=== PATIENT | female | born 1950 | race Caucasian/White ===

== ENCOUNTER → 2019-08-07 | Outpatient (CLI) | payer MEDICARE, OTHER | LOC: M.ULTRA 12:51 | DX: L03.119 Cellulitis of unspecified part of limb (principal); D69.6 Thrombocytopenia, unspecified; R22.43 Localized swelling, mass and lump, lower limb, bilateral; R53.83 Other fatigue ==

== ENCOUNTER → 2019-12-12 | Outpatient (CLI) | payer MEDICARE, OTHER | LOC: M.RAD 11:38 | DX: J40 Bronchitis, not specified as acute or chronic (principal); Z99.81 Dependence on supplemental oxygen ==

== ENCOUNTER 2020-04-07 13:13 | Inpatient (IN) | payer MEDICARE, OTHER ==
[~2020-04-07] VITALS: Ht 157.5 cm; Wt 75.1 kg
[2020-04-07 13:15] VITALS: BP 135/57
[2020-04-07 13:49] LABS: ABSOLUTE EOSINOPHILS 0.1 thou/uL (0.0-0.7); ABSOLUTE LYMPHOCYTES 0.7 thou/uL (0.8-5.3); ABSOLUTE MONOCYTES 0.4 thou/uL (0.0-1.2); ABSOLUTE NEUTROPHILS 3.3 thou/uL (1.6-8.1); BASOPHILS 0.7 %; EOSINOPHILS 1.6 %; HEMATOCRIT 41.6 % (37.0-47.0); HEMOGLOBIN 14.6 gm/dL (12.0-15.0); LYMPHOCYTES 14.7 %; MCH 35.2 pg (26.0-34.0); MCHC 35.1 g/dL (28.0-37.0); MCV 100.5 fL (80.0-100.0); MONOCYTES 9.5 %; MPV 8.5 fl. (7.2-11.1); NUCLEATED RBCS 0 /100WBC; PLATELET COUNT* 76 thou/uL (150-400); POLYS 73.5 %; RBC 4.14 mil/uL (4.20-5.00); RDW-CV 14.4 % (10.5-14.5); WBC 4.5 thou/uL (4.0-11.0)
[2020-04-07 14:00] LABS: APTT 28.3 Seconds (25.0-31.3); CALCIUM 8.7 mg/dL (8.5-10.1); CREATININE 1.3 mg/dL (0.6-1.3); INR 1.3; POTASSIUM 4.4 mmol/L (3.5-5.1)
[2020-04-07 14:04] LABS: ALBUMIN 2.9 g/dL (3.4-5.0); TOTAL BILIRUBIN 4.2 mg/dL (<0.1-1.0); TOTAL PROTEIN 6.2 g/dL (6.4-8.2)
[2020-04-07 14:39] LABS: URINE BILIRUBIN NEGATIVE (Negative); URINE BLOOD TRACE (Negative); URINE CLARITY CLEAR; URINE COLOR YELLOW; URINE GLUCOSE-RANDOM 2+ (Negative); URINE KETONES NEGATIVE (Negative); URINE LEUKOCYTES-REFLEX NEGATIVE (Negative); URINE NITRITE-REFLEX NEGATIVE (Negative); URINE PROTEIN NEGATIVE (Negative); URINE UROBILINOGEN >= 8.0 E.U./dl (0.2-1.0)
[2020-04-07] MEDS ORDERED: XIFAXAN550 MG PO (15:02)
[2020-04-07] MEDS ORDERED: ASA81BEC PO (15:02)
[2020-04-07] MEDS ORDERED: METFORMIN HCL500 M3 PO (15:03)
[2020-04-07] MEDS ORDERED: CITRACAL + D E1 EACH PO (15:04)
[2020-04-07] MEDS ORDERED: IRON325 M1 PO (15:04)
[2020-04-07] MEDS ORDERED: MULTIVITAMINS1 EAC7 PO (15:05)
[2020-04-07] MEDS ORDERED: LEXAPRO20 MG PO (15:05)
[2020-04-07] MEDS ORDERED: ALDACTONE50 MG PO (15:06)
[2020-04-07] MEDS ORDERED: BUPROPION XL300 MG PO (15:06)
[2020-04-07] MEDS ORDERED: FUROSEMIDE 40 M40 MG PO (15:06)
[2020-04-07] MEDS ORDERED: COQ1050 MG PO (15:07)
[2020-04-07] MEDS ORDERED: JANUVIA100 MG PO (15:07)
[2020-04-07] MEDS ORDERED: OMEPRAZOLE 20 M20 M1 PO (15:08)
[2020-04-07] MEDS ORDERED: AVAPRO75 MG PO (15:08)
[2020-04-07] MEDS ORDERED: ROPINIROLE HCL4 M1 PO (15:08)
[2020-04-07 15:30] VITALS: BP 135/61
[2020-04-07 16:00] VITALS: BP 127/54
--- NOTE | 2020-04-07 16:34 | NUR ---
PT ADMITTED TO ROOM 232 FROM ED VIA BED WITH DX OF FRACTURED RIGHT HIP POST FALL. PT HAS STAGE 4 LIVER CIRRHOSIS AND RECIEVES CARE AT [facility] [address]. REQUEST FOR RECORDS. PT IS LETHARGIC, ABLE TO ANSWER ORIENTATION QUESTIONS BUT OTHERWISE IS DROWSY UNDER SEDATION. PT ON 2L NC THAT SHE WEARS AT HOME. VSS. SR ON THE MONITOR.L AC INFUSING NS AT 100. HIP ABDUCTOR REQUESTED FROM CAPACITY MANAGEMENT SPECIALIST TO ASSIST IN IMMOBILIZING PT LEGS. VENCES DRAINING CLEAR.PT IS UNABLE TO PROVIDE THOROUGH INFORMATION. WILL ATTEMPT TO CALL . ALARM IN PLACE. WCTM
[2020-04-07 20:15] VITALS: BP 133/57
[2020-04-08] VITALS (7 sets, daily range): BP systolic 108–126; BP diastolic 44–58
[2020-04-08 06:18] LABS: HEMATOCRIT 40.5 % (37.0-47.0); MCH 35.3 pg (26.0-34.0); MCHC 34.7 g/dL (28.0-37.0); MCV 101.7 fL (80.0-100.0); MPV 8.7 fl. (7.2-11.1); RBC 3.98 mil/uL (4.20-5.00); RDW-CV 14.3 % (10.5-14.5)
[2020-04-08 06:34] LABS: ALBUMIN 2.6 g/dL (3.4-5.0); CALCIUM 8.1 mg/dL (8.5-10.1); CREATININE 1.1 mg/dL (0.6-1.3); MAGNESIUM 1.7 mg/dL (1.8-2.4); POTASSIUM 4.3 mmol/L (3.5-5.1); TOTAL BILIRUBIN 4.8 mg/dL (<0.1-1.0); TOTAL PROTEIN 5.8 g/dL (6.4-8.2)
--- NOTE | 2020-04-08 06:51 | NUR ---
RECEIVED REPORT AND ASSUMED CARE OF PATIENT AT 1900. VSS. NO ACUTE CHANGES THROUGHOUT SHIFT. ALL ROUNDINGS COMPLETED, ALL NEEDS MET, FULL ASSESSMENT COMPLETED CHARTED. CALL LIGHT AND PERSONAL ITEMS IN REACH.
--- NOTE | 2020-04-08 10:12 | EKG ---
[place] [address] ELECTROCARDIOGRAM REPORT Name: TIFFANIE MARIN Room: [address] ADM IN M.R.#: [id number] Admission: 04/07/20 Attend Phys: Doe khalil Sa Discharge: Date of : 46 Date of Service: 04/07/20 1330 Report #: [id number] THIS REPORT FOR: //name// [facility] ED Test Date: 2020-04-07 Test Time: 13:30:47 Pat Name: TIFFANIE MARIN Department: Room: [facility] Gender: F Core Cutter: BONNY : 1950 Requested By: Juan Jose Mitchell Order Number: [id number] MD: Stefan Byrd Measurements Intervals [place] Rate: 69 P: 77 IA: 175 QRS: -53 QRSD: 124 T: 97 QT: 452 QTc: 485 Interpretive Statements Sinus rhythm nonspecific intraventricular conduction defect left axis nonspecific st changes No previous ECG available for comparison Electronically Signed On 04-08-2020 10:10:21 CDT by Stefan Byrd [email or web address] <ELECTRONICALLY SIGNED> By: Stefan Byrd MD, FAC 04/08/20 1010 1330 1330 Stefan Byrd MD, [facility] /EPI
--- NOTE | 2020-04-08 12:25 | CON ---
[address] [address] CONSULTATION Name: NISHA MARINTiffany Younger Room: [address] IN M.R.#: [id number] Admission: 04/07/20 Attend Phys: Doe Cline Discharge: Date of : 46 Report #: [id number] THIS REPORT FOR: //name// cc: Kusum Costello MD, Lin W. MD ~ THIS REPORT FOR: //name// CC: Doe Perrin MD DATE OF SERVICE: 04/08/2020 CARDIOLOGY CONSULTATION HISTORY OF PRESENT ILLNESS: The patient is a 70-year-old white female who I was asked to see in the hospital today after she fell and broke her hip. The history is obtained from the patient who is currently drowsy and it was difficult for her to stay awake. According to notes in the chart, she had 3 coronary artery stents placed in 2003 at [place]. She is not very active at this time. She denies any significant chest pain or shortness of breath. Apparently yesterday, she was up in her kitchen and she tripped and fell. Her brought her to the Emergency Room. There was no seizure activity. She had x-rays obtained and found to have a hip fracture. She is scheduled for surgery today. Cardiology consultation was requested for preop evaluation. She denies any recent palpitations or loss of consciousness. PAST MEDICAL HISTORY: Otherwise significant for recent hospitalization at [facility] on the [address] for paracentesis. She apparently has a history of cirrhosis. She does have a history of diabetes. CURRENT MEDICATIONS: Consist of aspirin, metformin, bupropion, Lasix, spironolactone, Januvia, omeprazole, Avapro, ropinirole. ALLERGIES: SHE HAS A PREVIOUS INTOLERANCE TO TRAZODONE. FAMILY HISTORY: Negative for heart disease. SOCIAL HISTORY: She is . She and her live in [place]. She denies a history of smoking or alcohol abuse. REVIEW OF SYSTEMS: She denies a history of stroke. She apparently does have oxygen at home. No history of kidney disease, cancer, psychiatric illness, chronic skin condition. PHYSICAL EXAMINATION: [place] [address] CONSULTATION Name: TIFFANIE MARIN Room: [address]#: [id number] Admission: 04/07/20 Attend Phys: Doe Cline Discharge: Date of : 46 Report #: [id number] GENERAL: Revealed an elderly female lying in bed. She appeared in no acute distress. VITAL SIGNS: She had a blood pressure of 120/60, pulse is 80, she is afebrile. HEENT: She was anicteric. Conjunctivae are pink. Mucous membranes appear dry. NECK: Veins nondistended. No carotid bruits. CHEST: Clear to auscultation. CARDIOVASCULAR: Regular rate and rhythm, no murmur. ABDOMEN: Soft. EXTREMITIES: Had no edema. Dorsalis pedis pulse cannot be palpated. SKIN: Cool and dry. NEUROLOGIC: Nonfocal. LABORATORY DATA: ECG on admission yesterday showed a sinus rhythm with left anterior fascicular block. Her workup in the Emergency Room yesterday, she had a portable chest x-ray that showed normal heart size, clear lung marino. No significant infiltrate or effusions. She had a CT scan of the head performed after her a fall that showed no acute abnormality. She had a lab work in the Emergency Room yesterday that showed sodium 138, potassium 4.3, creatinine 1.1; SGOT 54, SGPT 30, bilirubin 4.8, alkaline phosphatase 96, albumin is only 2.6. Troponin is 0.06. Her white blood cell count 8.0, hemoglobin 14.0, platelet count is only 85,000. IMPRESSION AND RECOMMENDATIONS: 1. Hip fracture. The patient appears to have no cardiac contraindication to surgery. Recommend no further cardiac evaluation at this time. I would hold aspirin prior to surgery. 2. History of coronary artery stents. No recent angina. I would resume aspirin after surgery. 3. Hypertension. The patient is on ARB. 4. Diabetes. 5. History of cirrhosis. 6. Thrombocytopenia. No recent bleeding. 7. Cirrhosis. I would attempt to obtain the records. <ELECTRONICALLY SIGNED> By: Stefan Byrd MD, [facility] 04/08/20 1225 0821 [id number] Byrd MD, FAC /nt
--- NOTE | 2020-04-08 12:27 | NUR ---
CM ATTEMPTED TO SEE PT. NURSING SAID SHE WENT TO SURGERY. WILL SEE TOMORROW.
--- NOTE | 2020-04-08 15:15 | NUR ---
PT RETURNED TO ROOM 232 FROM PACU. WHILE IN PACU PT'S , DEANA, WAS ALLOWED IN TO SEE PT. HE TOOK PT'S [place]ING RING AND WATCH HOME WITH HIM.
[2020-04-08 18:29] LABS: HEMATOCRIT 34.9 % (37.0-47.0); HEMOGLOBIN 12.1 gm/dL (12.0-15.0)
[2020-04-09] VITALS (7 sets, daily range): BP systolic 91–120; BP diastolic 35–54
--- NOTE | 2020-04-09 04:14 | NUR ---
ASSUMED OT CARE AT APPROX 1930. PT IS DROWSY BUT AROUSABLE, AND IS ORIENTED X4. RESIDENTIAL INSURANCE INSPECTOR IS TRACING SR BBB. NO DESATURATIONS NOTED ON 4L OF O2/NC. PT C/O RIGHT HI[ PAIN PARTIALLY RELIEVED BY PAIN MEDS GIVEN PER JAN. NO ACUTE CHANGES THIS SHIFT. POSITION CHANGES DONE Q2H. RIGHT HIP DRESSING INTACT, CLEAN AND DRY. ABDUCTOR PILLOW IN PLACE. CALL LIGHT WITHIN REACH. HOURLY ROUNDING DONE FOR PT SAFETY. HIGH FALL PRECAUTIONS IN PLACE.
[2020-04-09 04:20] LABS: ABSOLUTE LYMPHOCYTES 0.5 thou/uL (0.8-5.3); ABSOLUTE NEUTROPHILS 8.5 thou/uL (1.6-8.1); BASOPHILS 0.1 %; HEMATOCRIT 31.7 % (37.0-47.0); HEMOGLOBIN 11.1 gm/dL (12.0-15.0); LYMPHOCYTES 5.1 %; MCH 35.6 pg (26.0-34.0); MCHC 34.9 g/dL (28.0-37.0); MPV 8.4 fl. (7.2-11.1); NUCLEATED RBCS 0 /100WBC; PLATELET COUNT* 62 thou/uL (150-400); POLYS 84.8 %; RBC 3.11 mil/uL (4.20-5.00); RDW-CV 14.7 % (10.5-14.5)
[2020-04-09 04:45] LABS: ALBUMIN 2.4 g/dL (3.4-5.0); CALCIUM 7.6 mg/dL (8.5-10.1); CREATININE 1.3 mg/dL (0.6-1.3); MAGNESIUM 1.8 mg/dL (1.8-2.4); POTASSIUM 4.6 mmol/L (3.5-5.1); TOTAL BILIRUBIN 2.9 mg/dL (<0.1-1.0)
[2020-04-10] VITALS: BP 94/45
[2020-04-10 04:00] VITALS: BP 100/42
--- NOTE | 2020-04-10 05:33 | NUR ---
ASSUMED OT CARE AT APPROX 1930. PT IS DROWSY BUT AROUSABLE, AND IS ORIENTED X4. LITERACY TUTOR IS TRACING SR. NO DESATURATIONS NOTED ON 4L OF O2/NC. RIGHT HIP PAIN RELIEVED BY PAIN MEDICINE GIVEN PER JAN. NO ACUTE CHANGES OVERNIGHT. POST OP DRESSING ON THE RIGHT HIP IS C/D/I. POSITION CHANGES DONE Q2H. CALL LIGHT WITHIN REACH. HOURLY ROUNDING DONE FOR PT SAFETY.HIGH FALL PRECAUTIONS IN PLACE.
[2020-04-10 07:30] VITALS: BP 106/49
--- NOTE | 2020-04-10 11:31 | NUR ---
SPOKE WITH PT'S ,DEANA,THIS AM. HE RETURNED MY CALL FROM YESTERDAY. HE SAID PT.LIVES AT HOME WITH HIM. HE IS HOME MOST OF THE TIME WITH HER. PTS MOM HELPS SOMETIMES. SHE USES A CANE. DOES NOT HAVE A WALKER. HAS O2 THROUGH [facility] BUT DOESN'T LIKE TO WEAR IT. DID NOT HAVE IT ON WHEN SHE FELL. SHE GETS FUZZY SOMETIMES WHEN SHE DOESN'T WEAR HER O2. SHE IS INDEPENDENT WITH DRESSING AND BATHING AND SOME FORKLIFT OPERATOR. SHE LIKES TO SPEND TIME IN THEIR FINISHED BASEMENT BUT SHE USUALLY NEEDS ASSIST WITH GOING DOWN THE STAIRS. HE WOULD LIKE FOR HER TO GO TO INPT.REHAB IF SHE QUALIFYS. WILL DISCUSS WITH . DEANA WOULD LIKE TO VISIT PT. CM CHECKED WITH CNO. SHE SAID WE ARE NOT ACCEPTING VISITORS AT THIS TIME UNLESS SOMEONE IS IMMENENTLY DYING OR OTHER EXTENUATING CIRCUMSTANCES. ROBBY INFORMED HE IS NOT ALLOWED TO VISIT.
[2020-04-10 12:00] VITALS: BP 91/32
[2020-04-10 15:49] LABS: ABSOLUTE EOSINOPHILS 0.1 thou/uL (0.0-0.7); ABSOLUTE LYMPHOCYTES 0.7 thou/uL (0.8-5.3); ABSOLUTE MONOCYTES 0.7 thou/uL (0.0-1.2); ABSOLUTE NEUTROPHILS 5.2 thou/uL (1.6-8.1); BASOPHILS 0.5 %; EOSINOPHILS 1.3 %; HEMATOCRIT 28.4 % (37.0-47.0); HEMOGLOBIN 9.6 gm/dL (12.0-15.0); LYMPHOCYTES 10.5 %; MCH 35.3 pg (26.0-34.0); MCV 103.8 fL (80.0-100.0); MPV 9.3 fl. (7.2-11.1); NUCLEATED RBCS 0 /100WBC; PLATELET COUNT* 50 thou/uL (150-400); POLYS 77.7 %; RBC 2.73 mil/uL (4.20-5.00); RDW-CV 15.1 % (10.5-14.5); WBC 6.7 thou/uL (4.0-11.0)
[2020-04-10 16:01] LABS: ALBUMIN 2.1 g/dL (3.4-5.0); CALCIUM 7.2 mg/dL (8.5-10.1); CREATININE 1.1 mg/dL (0.6-1.3); POTASSIUM 4.5 mmol/L (3.5-5.1); TOTAL BILIRUBIN 1.9 mg/dL (<0.1-1.0); TOTAL PROTEIN 4.1 g/dL (6.4-8.2)
[2020-04-10 16:02] LABS: % SATURATION 18 % (20-39); IRON 34 ug/dL (50-175)
[2020-04-10 17:57] VITALS: BP 83/34
[2020-04-10 20:00] VITALS: BP 118/44
[2020-04-11 00:02] VITALS: BP 109/45
[2020-04-11 04:00] VITALS: BP 101/49
--- NOTE | 2020-04-11 04:42 | NUR ---
PT WAS FOUND TO BE ONLY RESPONSIVE TO PAINFUL STIMULI, NO EYE OPENING, MOANS TO PAINFUL STIMULI, AND WITHDRAWS TO PAINFUL STIMULI AT APPROX 2030, PT WAS ABLE TO FINALLY WAKE UP AFTER MULTIPLE VIGOROUS STIMULI AT APPROX 2100 BUT GOES RIGHT BACK TO SLEEP AFTER. BLOOD GLUCOSE IS 121. DR HAMM INFORMED, NARCAN GIVEN PER JAN ORDERED. LACTULOSE ENEMA GIVEN PER JAN. PT WOKE UP AND C/O GENERALIZED PAIN AFTER THE NARCAN. TORADOL GIVEN. PT WENT BACK TO SLEEP AT APPROX 0330, PT WAKES UP WHEN NAME IS CALLED BUT WILL GO RIGHT BACK TO SLEEP. PT IS CLOSELY MONITORED.
[2020-04-11 08:00] VITALS: BP 128/59
[2020-04-11 11:30] VITALS: BP 97/48
[2020-04-11 13:54] LABS: BE -1.7 mmol/L (-2 to +3); PCO2 VENOUS 34.5 mmHg (41.0-51.0); PO2 VENOUS 121.3 mmHg (35.0-45.0)
[2020-04-11 13:55] LABS: ABSOLUTE EOSINOPHILS 0.2 thou/uL (0.0-0.7); ABSOLUTE LYMPHOCYTES 0.7 thou/uL (0.8-5.3); ABSOLUTE MONOCYTES 0.6 thou/uL (0.0-1.2); ABSOLUTE NEUTROPHILS 3.3 thou/uL (1.6-8.1); BASOPHILS 0.5 %; EOSINOPHILS 3.9 %; HEMATOCRIT 27.6 % (37.0-47.0); HEMOGLOBIN 9.6 gm/dL (12.0-15.0); LYMPHOCYTES 14.1 %; MCH 35.2 pg (26.0-34.0); MCHC 34.7 g/dL (28.0-37.0); MCV 101.4 fL (80.0-100.0); MONOCYTES 12.4 %; MPV 8.3 fl. (7.2-11.1); NUCLEATED RBCS 0 /100WBC; PLATELET COUNT* 54 thou/uL (150-400); POLYS 69.1 %; RBC 2.72 mil/uL (4.20-5.00); RDW-CV 14.4 % (10.5-14.5); WBC 4.7 thou/uL (4.0-11.0)
[2020-04-11 14:07] LABS: ALBUMIN 1.8 g/dL (3.4-5.0); CALCIUM 7.1 mg/dL (8.5-10.1); POTASSIUM 4.4 mmol/L (3.5-5.1); TOTAL BILIRUBIN 2.5 mg/dL (<0.1-1.0); TOTAL PROTEIN 4.3 g/dL (6.4-8.2)
[2020-04-11 16:00] VITALS: BP 140/67
--- NOTE | 2020-04-11 17:24 | NUR ---
ASSUMED CARE OF PATIENT THIS AM AT 0730. PATIENT IS IN BED WITH HER EYES CLOSED. SHE IS ANSWERING MOST QUESTIONS APPROPRIATELY WHEN ASKED. PATIENT HAS BEEN CRYING OUT AND TEARFUL OFTEN THROUGHOUT THE DAY. SHE INITIALLY C/O HIP PAIN BUT LATER STATED THAT SHE JUST WANTED TO GO HOME. PATIENT ANXIOUS AND CRYING UNCONTROLLABLY. TALKED WITH PATIENTS SEVERAL TIMES TODAY. PATIENT REPOSITIONED Q 2 HR. MEDICATED FOR PAIN INFREQUENTLY. IV FLUID BOLUS GIVEN BUT PATIENT'S U.O CONTINUE DIMINISHED. PO FLUIDS GIVEN FREQUENTLY. PATIENT IS IN BED. CALL LIGHT IS IN REACH. NO FALLS OR INJURY.
[2020-04-11 20:20] VITALS: BP 122/59
[2020-04-12] VITALS: BP 103/70
[2020-04-12 04:00] VITALS: BP 108/42
[2020-04-12 08:00] VITALS: BP 115/40
[2020-04-12 09:48] LABS: HEMATOCRIT 26.4 % (37.0-47.0); MCH 35.1 pg (26.0-34.0); MCHC 34.1 g/dL (28.0-37.0); MPV 8.5 fl. (7.2-11.1); RBC 2.57 mil/uL (4.20-5.00); RDW-CV 14.6 % (10.5-14.5); WBC 4.5 thou/uL (4.0-11.0)
[2020-04-12 10:13] LABS: AMMONIA < 10 umol/L (11-32); ANION GAP 6 mmol/L (7-16); BUN 50 mg/dL (7-18); CALCIUM 7.5 mg/dL (8.5-10.1); CHLORIDE 109 mmol/L (98-107); CO2 25 mmol/L (21-32); CREATININE 0.9 mg/dL (0.6-1.3); GLUCOSE 139 mg/dL (70-99); POTASSIUM 4.5 mmol/L (3.5-5.1); SODIUM 140 mmol/L (136-145)
[2020-04-12 12:00] VITALS: BP 140/63
--- NOTE | 2020-04-12 16:48 | NUR ---
PATIENT RESTING IN BED. SHE ATTEMPTED TO PARTICPIATE WITH THERAPIES TODAY, WITH MINIMAL SUCCESS. VSS AND PATIENT PAIN IS CONTROLLED WITH IV MEDICATION AND TOPICAL LIDOCAINE PATCH. HOURLY ROUDNING COMPLETED FOR PATIENT SAFETY.
[2020-04-12 17:00] VITALS: BP 131/54
[2020-04-12 20:10] VITALS: BP 137/56
[2020-04-13 00:15] VITALS: BP 126/47
[2020-04-13 04:15] VITALS: BP 145/55
--- NOTE | 2020-04-13 05:02 | NUR ---
PT CARE ASSUMED AT 1930. SAT MAINTAINED IN O2. PT IS TEARFUL, SAYS "I JUST WANT TO GO HOME" ALL THE TIME. ABDUCTOR PILLOW IN PLACE. TALKED WITH AND SISTER SEVERAL TIMES. VENCES IN PLACE AND DRAINING. CALL LIGHT WITHIN REACH AND BED IN LOW POSITION. HOURLY ROUNDING DONE FOR PT SAFETY.
[2020-04-13 07:02] LABS: HEMATOCRIT 28.4 % (37.0-47.0); MCH 35.4 pg (26.0-34.0); MCV 101.1 fL (80.0-100.0); MPV 8.2 fl. (7.2-11.1); RBC 2.81 mil/uL (4.20-5.00); RDW-CV 14.5 % (10.5-14.5); WBC 4.6 thou/uL (4.0-11.0)
[2020-04-13 07:13] LABS: ALBUMIN 2.1 g/dL (3.4-5.0); CALCIUM 7.3 mg/dL (8.5-10.1); POTASSIUM 4.4 mmol/L (3.5-5.1); TOTAL BILIRUBIN 3.8 mg/dL (<0.1-1.0); TOTAL PROTEIN 4.4 g/dL (6.4-8.2)
[2020-04-13 08:08] VITALS: BP 132/90
[2020-04-13 12:00] VITALS: BP 155/56
--- NOTE | 2020-04-13 16:19 | NUR ---
WOUND NURSE: PATIEN SEEN TO ADDRESS LINEAR BULLA ON RIGHT MEDIAL THIGH MEASURING 1.0 X 11.0 X 0.1 CM, SMALL AMOUNT OF SEROUS DRAINAGE, NO PERIWOUND REDNESS, WARMTH, OR INDURATION. SUSPECT MAY BE RELATED OR THE RESULT OF VENCES CATHETER. CLEANSED WITH SOAP AND WATER, RINSED WITH WATER, THEN PATTED DRY. APPLIED EXUDERM LP, THEN SECURED WITH TRANSPARENT DRESSING. PATIENT INSTRUCTED ON IMPORTANCE OF REPOSITIONING TO PREVENT SKIN BREAKDOWN. FOLLOW UP TEACHING WILL BE NECESSARY.
--- NOTE | 2020-04-13 16:56 | NUR ---
PTS CALL EARLIER. UPSET BECAUSE WOULD NOT WORK WITH THERAPIES OVER THE WEEKEND. HE THINKS SHE HAS GIVEN UP. CM SAW PT. SHE STATED HOW MAD SHE WAS AT HER FOR PUTTING IN THE HARDWOOD FLOORS THAT MADE HER FALL. LISTENED TO HER VENT. SHE SAID SHE WANTED TO GO HOME. EXPLAINED THAT COULD NOT TAKE CARE OF HER AT [facility] BY HIMSELF AND THE DRS WOULD NOT LET HER GO HOME AT [facility]. SHE WOULD EITHER HAVE TO GO TO THE ACUTE INPT.REHAB UNIT HER IN THE HOSPTIAL [place] [facility] [place] [place]. SHE SAID SHE DID NOT WANT TO GO TO A LONGTERM SO SHE WOULD TRY HARD WITH THERAPY TO GET TO GO UP THERE. CALLED PTS BACK AND HAD TO LEAVE A . HE REQUESTED I CALL HIM AFTER SPEAKING WITH HIS .
--- NOTE | 2020-04-13 18:10 | NUR ---
PATIENT RESTING IN BED. UP WITH ASSIST X1 AND WALKER WITH MODERATE ASSISTANCE. SHE PARTICIPATED WITH PT/OT TODAY. PAIN MANAGED WITH PO MEDICATIONS. VSS AND PATIENT IN NOAPPARNET SIGNS OF DISTRESS. VENCES TO GRAVITY DRAIN BAG. RIGHT HIP ISLAND DRESSING INTACT. DISTAL PULSES INTACT. HOURLY ROUNDING COMPLETD FOR PATIENT SAFETY.
[2020-04-13 20:20] VITALS: BP 135/47
[2020-04-14] VITALS (7 sets, daily range): BP systolic 114–160; BP diastolic 39–63
--- NOTE | 2020-04-14 05:18 | NUR ---
PT CARE ASSUMED AT 1930. SAT MAINTAINED IN O2. ALERT AND ORIENTED X3 BUT CONFUSED. C/O PAIN, MEDICATION GIVEN PER EMAR. VENCES IN PLACE AND DRAINING. CALL LIGHT WITHIN REACH AND BED IN LOW POSITION. HOURLY ROUNDING DONE FOR PT SAFETY.
[2020-04-14 08:37] LABS: HEMATOCRIT 28.8 % (37.0-47.0); HEMOGLOBIN 10.2 gm/dL (12.0-15.0); MCH 35.1 pg (26.0-34.0); MCHC 35.4 g/dL (28.0-37.0); MCV 99.2 fL (80.0-100.0); MPV 7.4 fl. (7.2-11.1); RBC 2.9 mil/uL (4.20-5.00); RDW-CV 14.6 % (10.5-14.5); WBC 5.3 thou/uL (4.0-11.0)
[2020-04-14 08:51] LABS: ALBUMIN 2.3 g/dL (3.4-5.0); ALKALINE PHOSPHATASE 88 U/L (46-116); AMMONIA < 10 umol/L (11-32); ANION GAP 9 mmol/L (7-16); BUN 49 mg/dL (7-18); CALCIUM 7.5 mg/dL (8.5-10.1); CHLORIDE 110 mmol/L (98-107); CO2 21 mmol/L (21-32); CREATININE 1.2 mg/dL (0.6-1.3); GLUCOSE 108 mg/dL (70-99); MAGNESIUM 2.2 mg/dL (1.8-2.4); POTASSIUM 4.4 mmol/L (3.5-5.1); SGOT 49 U/L (15-37); SGPT 20 U/L (30-65); SODIUM 140 mmol/L (136-145); TOTAL BILIRUBIN 5.4 mg/dL (<0.1-1.0); TOTAL PROTEIN 4.7 g/dL (6.4-8.2)
--- NOTE | 2020-04-14 09:20 | NUR ---
ASSUMED CARE OF PT THIS AM AROUND 0715- LEMON PICKER IN PLACE ORDERED, TRACING SR/BBB- UPON ASSESSMENT PT NOTED TO BE RESTING IN BED- PT A&O X2-3 WITH NOTED INTERMITENT CONF - INCONT OF B/B, VENCES IN PLACE D/D CLEAR JAMIE URINE- EXT ASSIST WITH TRANSFERS- PT UP TO BED SIDE RECLINER THIS AM PER OT- FAIR PO INTAKE NOTED THIS AM WITH BREAKFAST- LCTA, RESP EVEN AND UN-LABORED- VSS, O2 SAT 92% ON 1L VIA NC- ABD SOFT/ROUND/NON-TENDER, BS X4 QUADS-BM NOTED THIS AM-IV NOTED RIGHT HAND INTACT, IVF INFUSSING PRESCRIBED- DREESING NOTED C/D/I TO RIGHT UPPER INNER THIGH R/T BLISTER- RIGHT HIP DRESSING C/D/I- BS MONITORED ORDERED- PT DENIES ANY C/O PAIN/DISCOMFORT AT THIS TIME- CALL LIGHT AND PERSONAL BELONGINGS WITH IN REACH- ALL NEEDS MET AT THIS TIME-WCTM
[2020-04-14] MEDS ORDERED: OXYCODONE HCL 55 MG PO (12:18)
[2020-04-14] MEDS ORDERED: TRAMADOL 50 MG50 MG PO (12:18)
[2020-04-14] MEDS ORDERED: LACTULOSE20 GM/30 M PO (12:18)
--- NOTE | 2020-04-14 16:36 | NUR ---
CALL FROM PTS DAUGHTER,KARINA, THIS AM([phone]. SHE WAS CONCERND OVER STATEMENTS HER MOM MADE TO HER ON THE PHONE. SHE SAID MOM IS STILL MAD AT HER DAD FOR PUTTING IN THE HARDWOOD FLOORS AT HOME,WHICH SHE FELL ON AND FX HER HIP. SHE TOLD HER WHEN SHE GOT OUT OF HERE,SHE WAS GOING TO GET A GUN AND SHOOT HIM (HER ) AND HERSELF, OR IF NOT THAT,BURN THE HOUSE DOWN. AT HOME WAS ONLY TAKING SOME OF HER MEDS, PICKED OUT THE ONES SHE WANTED TO TAKE. SEEMED PARANOID AT TIMES. DISCUSSED LABS AND THAT WITH CIRRHOSIS CAN CAUSE ENCEPHALOPATHY. SHE REQUESTED A PSYCH EVAL. INFORMED. SAID SHE WOULD ORDER TELE PSYCH BEFORE PT.WENT TO REHAB. ELEUTERIO PEREZ INFORMED. ELEUTERIO PEREZ AT THIS TIME SAID PSYCHIATRIST ONLY WANTED TO ADJUST SOME MEDICATIONS. SHE CAN GO UP TO REHAB TODAY. SHE SAID [facility] WILL CALL AND LET HER KNOW WHEN PT.CAN COME UP. CM NOTIFIED .
--- NOTE | 2020-04-14 17:00 | OP ---
[address] [id number] OPERATIVE REPORT Name: ENEDELIA MARINRADHA Younger Room: [address] IN M.R.#: [id number] Admission: 04/07/20 Attend Phys: Doe Cline Discharge: Date of : 46 Report #: [id number] THIS REPORT FOR: //name// cc: Kusum Costello MD, Lin W. MD ~ THIS REPORT FOR: //name// CC: Doe Mitchell DICTATED BY: RESIDENT Little DO DATE OF SERVICE: 04/08/2020 PREOPERATIVE DIAGNOSIS: Displaced right femoral neck fracture, closed. POSTOPERATIVE DIAGNOSIS: Displaced right femoral neck fracture, closed. PROCEDURE: Right hip bipolar hemiarthroplasty. SURGEON: Stefan Olson DO ORNAMENTAL BRONZE WORKER: Torin Tapia DO SECOND CREDIT COLLECTIONS ANALYST: eJd Del Castillo DO ESTIMATED BLOOD LOSS: 200 mL. COMPLICATIONS: None. SPECIMEN REMOVED: None. ANTIBIOTICS: Ancef 2 grams IV preoperatively. SPECIMEN REMOVED: None. ORTHOPEDIC IMPLANTS: Biomet bipolar hemiarthroplasty hip system utilizing a size 8 standard offset Taperloc femoral stem with a 44 mm bipolar shell, 28 mm head and -3 neck length. ANESTHESIA: General. CONDITION OF PATIENT: Stable to PACU. INDICATIONS: The patient is a pleasant 70-year-old female with an unfortunate extensive history of comorbidities including stage 4 liver cirrhosis, [place] [address] OPERATIVE REPORT Name: TIFFANIE MARIN Room: [address] IN .R.#: [id number] Admission: 04/07/20 Attend Phys: Doe Cline Discharge: Date of : 46 Report #: [id number] admitted to [facility] on 04/07/2020 after sustaining a fall, resulting in right hip pain and inability to weightbear. Evaluation in the Emergency Department demonstrated a displaced right femoral neck fracture. We were consulted for further evaluation and treatment. After evaluation of the patient as well as the x-rays, I did discuss the recommendations which would include bipolar hemiarthroplasty. I discussed the procedure, risks, benefits, complications and indications in detail with her. Risks discussed include, but not limited to infection, neurovascular injury, continued worsening pain, leg length discrepancy, fracture, dislocation, need for further surgery, DVT, PE, and/or anesthesia complications. Her both did express understanding. We also had a long discussion regarding potentially transferring her to [facility] as her investigator operator is located there. Unfortunately, she has been approximately 24 hours since her injury. By the time we took her to surgery, we discussed that further delay in her care could certainly lead to increased complications. We also discussed if she were to have hepatic issues. Postoperatively, she can be transferred to that point. They did express understanding and wished to proceed with surgery. Consent was obtained. DESCRIPTION OF PROCEDURE: After consent was obtained, the patient was taken to the operative suite and placed in supine position on the operating room table. She was given the benefit of general anesthesia. She was placed in the lateral decubitus position. All bony prominences were well padded. We did utilize a pegboard. Axillary roll was placed. The right leg was then sterilely prepped and draped in usual fashion. Preoperative timeout was obtained to confirm the correct patient, procedure and operative site. Approximately 10 cm incision was made for utilizing anterolateral approach. Dissection was taken down to the level of tensor fascia. A new knife was used and the fascia was released both proximally and distally exposing the greater trochanter. The gluteus tendons were isolated. These were reflected off the anterior hip capsule utilizing electrocautery. The hip was gradually externally rotated, exposing the anterior hip capsule. A T-capsulotomy was then performed. We encountered the femoral neck fracture at this point. The femoral neck cut was freshened up with a saw, approximately one fingerbreadth above the lesser trochanter. Attention was then turned to the acetabulum. We utilized bipolar shell trials and found a 44 to be a good fit and suction seal. Attention was then turned to the proximal femur. Box osteotome was utilized followed by a canal finder and sequential broaching. This progressed up to a size 8. This gave us good fit and fill of the proximal femur and good stability. Trial reduction was performed with -3 neck length. The hip was taken through range of motion. There was no subluxation or dislocation noted. This did feel stable. The trial component was then removed and after thorough irrigation, the final size 8 standard offset Taperloc femoral stem was impacted to appropriate depth. This did have again good purchase. The calcar was intact. Trial reduction was again performed and a -3 neck length was chosen. The -3 neck, 28 mm head with 44 mm bipolar shell was then impacted on a clean trunnion. The hip was then [address] [address] OPERATIVE REPORT Name: DIMMITT,TIFFANIE S Room: [address] IN R.#: [id number] Admission: 04/07/20 Attend Phys: Doe Cline Discharge: Date of : 46 Report #: [id number] reduced with good reduction maneuver. Hip was taken through range of motion. There was no subluxation or dislocation noted. The hip was again thoroughly irrigated. TXA was placed in the wound. Ortho cocktail was injected. Capsular tissue was closed with #1 Vicryl in a vrftzg-jb-hioss fashion. Gluteus medius and minimus tendons were reapproximated to the greater trochanter utilizing a #5 Ethibond in a ccxudw-zc-zobwd fashion utilizing bony bites. This was reinforced with #1 Vicryl in a arezyn-xg-fsyte fashion. Tensor fascia was reapproximated with #1 Vicryl in a mtsrou-ws-nzwii fashion. Subcutaneous tissue was closed with a 2-0 Vicryl in interrupted fashion followed by shweta on the skin. Sterile dressing was applied. She was placed in an abductor pillow postoperatively. She did tolerate the procedure well without complications. She was taken to recovery room in stable condition. All needle and sponge counts were correct x 2 at the end of the procedure. We will check postoperative x-rays. Assuming no intraoperative complications, she can be weightbearing as tolerated and we will begin physical therapy when able. <ELECTRONICALLY SIGNED> By: Stefan Olson DO 04/14/20 1700 1311 [id number] Olson DO /jory
[2020-04-15] VITALS: BP 106/46
[2020-04-15 04:00] VITALS: BP 104/47
--- NOTE | 2020-04-15 05:00 | NUR ---
PT CARE ASSUMED AT 1930. SAT MAINTAINED IN O2. ALERT AND ORIENTED X4. C/O PAIN, MEDICATION GIVEN. CALL LIGHT WITHIN REACH AND BED IN LOW POSITION. DRESSING ON WOUND CHANGED. HOURLY ROUNDING DONE FOR PT SAFETY.
[2020-04-15 09:28] VITALS: BP 127/55
--- NOTE | 2020-04-15 11:35 | NUR ---
ASSUMED CARE OF PT THIS AM AROUND 0715- RETANNED LEATHER ROLLER IN PLACE ORDERED, TRACING SB WITH BBB- UPON ASSESSMENT PT NOTED TO BE RESTING IN BED, WATCHING TV- PT A&O X 3-4, NOTED TO BE IN GOOD MOOD THIS AM AND TALKATIVE- CONT VS INCONT OF BOWEL AND BLADDER- ASSIST X1 WITH TRANFERS, USING RW- PT NOTED TO BE UP WALKING HALLWAY WITH THERAPY THIS AM AND TOLERATING WELL- LCTA, RESP EVEN AND UN-LABORED- VSS, O2 SAT 94% ON 1.5L- ABD SOFT/ROUND/NON-TENDER, BS X 4 QUADS- BM NOTED THIS AM- IV NOTED TO RIGHT HAND INTACT, IVF INFUSSING PRESCRIBED- BS MONITORED ORDERED- REHAB D/C PLANNED TODAY- DRESSING NOTED TO RIGHT UPPER INNER THIGH AND RIGHT UPPER HIP INTACT- PT DENIES ANY C/O PAIN/DISCOMFORT AT THIS TIME- CALL LIGHT AND PERSONAL BELONGINGS WITH IN REACH- ALL NEEDS MET AT THIS TIME- WCTM
[2020-04-15 12:30] VITALS: BP 129/44
--- NOTE | 2020-04-15 13:23 | NUR ---
PT.DID NOT GO TO REHAB UNIT LAST EVENING. WANTED TO WAIT UNTIL THIS AM DUE TO STARTING ON LEXAPRO. PER [facility]/REHAB, SHE CAN COME UP TODAY AFTER TEAM MEETING. NOTIFIED U.S. SHE WILL PASS ON TO DAY NURSE.
[2020-04-15] MEDS ORDERED: BUPROPION XL300 MG PO (18:20)
--- NOTE | 2020-05-10 08:28 | CON ---
[address] [address] CONSULTATION Name: TANIATIFFANIE Room: [address] IN M.R.#: [id number] Admission: 04/07/20 Attend Phys: Doe Cline Discharge: 04/15/20 Date of : 46 Report #: [id number] THIS REPORT FOR: //name// cc: Kusum Costello MD, Lin W. MD ~ THIS REPORT FOR: //name// CC: Doe Mitchell DATE OF SERVICE: 04/07/2020 HISTORY OF PRESENT ILLNESS: This is a pleasant 70-year-old female with past medical history significant for cirrhosis, who has been admitted with a fall. The patient was found down by her . Unclear for how long she was down, probably around 2 hours. The patient was given fentanyl for pain and continues to be somnolent. Obtaining history from the patient is difficult because of her current mental status. Most of the history has been obtained from the chart. The patient has a past medical history significant for cirrhosis and this is decompensated with the presence of ascitic fluid. The patient apparently had a paracentesis performed 3 weeks ago at [facility] and is followed by Dr. Jo. PAST MEDICAL HISTORY: Cirrhosis. PAST SURGICAL HISTORY: Unknown. SOCIAL HISTORY: Unable to obtain because of the patient's mental status. REVIEW OF SYSTEMS: Unable to assess because of the patient's mental status. PHYSICAL EXAMINATION: VITAL SIGNS: Temperature 36.3, pulse rate 62, blood pressure 127/54, pulse ox 97% on 2 L. GENERAL: The patient is somnolent, barely opens eyes to commands. Spider angiomata scattered over the upper extremities. HEENT: Mucous membranes are moist. There is no congestion. LUNGS: Clear to auscultation bilaterally. CARDIOVASCULAR: Rate and rhythm regular. S1, S2 present. ABDOMEN: Soft. There is no distention, guarding or rigidity. EXTREMITIES: Warm, well perfused. Trace pitting edema. LABORATORY DATA: Hemoglobin 14.2, hematocrit 41.6, platelet count 76. INR 1.3. Sodium 137, potassium 4.4, chloride 104, bicarbonate 28, BUN 30, creatinine 1.3, total bilirubin 4.2, AST 51, ALT 34, alkaline phosphatase 114. Head CT, [place] [address] CONSULTATION Name: ALEXYSCASSANDRATIFFANIE Room: [address]#: [id number] Admission: 04/07/20 Attend Phys: Doe khalil Gipsy Discharge: 04/15/20 Date of : 46 Report #: [id number] ASSESSMENT AND PLAN: A pleasant 70-year-old female with history of cirrhosis, presented with a fall. I suspect her fall is related to encephalopathy. Therefore, I recommend starting her on rifaximin and lactulose. Ascites. The patient has a history of ascites, but there is no significant fluid thrill or abdominal distention. At this time, we can hold off on diuretics until we get further history from her previous hospitalization. Thank you for this consultation. <ELECTRONICALLY SIGNED> By: Donny Padgett MD 05/10/20 0828 [id number] Padgett MD /nt
== END 2020-04-15 17:54 | DRG 469 ==
LOC: M.ERS 13:13 → M.2W 14:09 → M.TBA-ER 14:09 → M.2W 16:29
PROVIDERS: Family Medicine; Internal Medicine; Orthopaedic Surgery; ADMIT Family Medicine; ATTEND Family Medicine
PROC: 0SRR0JZ Replacement of Right Hip Joint, Femoral Surface with Synthetic Substitute, Open Approach (ICD-10-PCS; principal; 2020-04-08)
DX: S72.001A Fracture of unspecified part of neck of right femur, initial encounter for closed fracture (principal); G93.41 Metabolic encephalopathy; E44.0 Moderate protein-calorie malnutrition; R18.8 Other ascites; W01.190A Fall on same level from slipping, tripping and stumbling with subsequent striking against furniture, initial encounter; K74.60 Unspecified cirrhosis of liver; I10 Essential (primary) hypertension; E11.9 Type 2 diabetes mellitus without complications; E78.5 Hyperlipidemia, unspecified; M79.7 Fibromyalgia; E86.0 Dehydration; I25.10 Atherosclerotic heart disease of native coronary artery without angina pectoris; D69.6 Thrombocytopenia, unspecified; E80.6 Other disorders of bilirubin metabolism; M19.90 Unspecified osteoarthritis, unspecified site; D75.89 Other specified diseases of blood and blood-forming organs; Z90.49 Acquired absence of other specified parts of digestive tract; I25.2 Old myocardial infarction; Z79.82 Long term (current) use of aspirin; Z79.84 Long term (current) use of oral hypoglycemic drugs; Z79.899 Other long term (current) drug therapy; Z68.30 Body mass index [BMI] 30.0-30.9, adult; Y93.89 Activity, other specified; Y92.89 Other specified places as the place of occurrence of the external cause; Y99.8 Other external cause status; Z88.8 Allergy status to other drugs, medicaments and biological substances

== ENCOUNTER 2020-04-15 15:35 | Inpatient (IN) | payer MEDICARE, OTHER ==
[~2020-04-15] VITALS: Ht 157.5 cm; Wt 55.8 kg
[~2020-04-15 15:35] MED LIST: ALDACTONE50 MG PO; ASA81BEC PO; AVAPRO75 MG PO; BUPROPION XL300 MG PO; CITRACAL + D E1 EACH PO; COQ1050 MG PO; FUROSEMIDE 40 M40 MG PO; IRON325 M1 PO; JANUVIA100 MG PO; LACTULOSE20 GM/30 M PO; LEXAPRO20 MG PO; METFORMIN HCL500 M3 PO; MULTIVITAMINS1 EAC7 PO; OMEPRAZOLE 20 M20 M1 PO; OXYCODONE HCL 55 MG PO; ROPINIROLE HCL4 M1 PO; TRAMADOL 50 MG50 MG PO; XIFAXAN550 MG PO
[2020-04-15] MEDS ORDERED: BUPROPION XL300 MG PO (18:20)
[2020-04-15 18:53] VITALS: BP 137/56
[2020-04-15 19:30] VITALS: BP 143/50
--- NOTE | 2020-04-15 23:51 | NUR ---
ASSUMED CARE AT 1930. PATIENT ADMITTED ON DAY SHIFT TO ROOM 328 S/P RT HIP FX. ASSISTED WITH TURNS. SKIN JAUNDICED, HX OF LIVER DISEASE, ON LACTULOSE TO CONTROL AMNONIA LEVELS. BSC PLACED FOR FECAL URGENCY. ASSESSMENT DONE. DRESSING TO RT HIP REPAIR C/D/I. DRESSING ON RT INNER THIGH WAS DONE TODAY AND PICTURES WERE DONE. TO BE CHANGED Q3D. NEW TOP SURESITE TRANSPARENT DRESSING APPLIED. ACKNOWLEDGES THAT SHE IS ON METFORMIN, BUT SAYS SHE IS NOT ON A DIABETIC DIET AT HOME BUT, "WATCHES WHAT I EAT." TAKES PILLS WHOLE WITH WATER. PILLOW BETWEEN LEGS. ASSISTED WITH TURNS. REHAB ROUTINE EXPLAINED. HOURLY ROUNDS CONTINUE. BED ALARM ON. CALL LITE IN REACH.
--- NOTE | 2020-04-16 01:05 | NUR ---
UP WITH TWO FOR SAFETY, NEEDS CUEING, AND LIFTING. ALSO NEEDS ENCOURAGEMENT TO FOCUS ON TASK AT HAND. HAD MOD LOOSE BM PER BSC. ABLE TO GET LEFT LEG IN, NEEDS HELP WITH RIGHT. O2 2L/NC. HAVING MILK AND PRASANTH CRACKERS FOR SNACK.
--- NOTE | 2020-04-16 06:17 | NUR ---
SLEPT OFF AND ON THROUGH THE NIGHT. INCONTINENT OF STOOL. BRIEF CHANGED. TOP DRESSING CHANGED TO RIGHT THIGH WHEN IT GOT STOOL ON THE OUTSIDE OF IT. LIKES TO TALK AND IT INTERFERES WITH HER CONCENTRATION ON THE TASKS AT HAND. FREQUENT DIRECTIONS TO FOCUS ON TASK AND CUEING NEEDED TO COMPLETE TASKS. NEEDS LIFTING ASSIST TO RISE. UP WITH TWO FOR SAFETY. SKIN CARE DONE, BRIEFS CHANGED. RETURNED TO BED. HOURLY ROUNDS CONTINUE. BED ALARM ON. CALL LITE IN REACH.
[2020-04-16 08:00] VITALS: BP 129/57
[2020-04-16 08:46] LABS: HEMATOCRIT 27.8 % (37.0-47.0); HEMOGLOBIN 9.9 gm/dL (12.0-15.0); MCH 35.4 pg (26.0-34.0); MCHC 35.7 g/dL (28.0-37.0); MCV 99.3 fL (80.0-100.0); MPV 7.2 fl. (7.2-11.1); RBC 2.8 mil/uL (4.20-5.00); RDW-CV 14.8 % (10.5-14.5); WBC 6.8 thou/uL (4.0-11.0)
[2020-04-16 08:57] LABS: CALCIUM 7.7 mg/dL (8.5-10.1); CREATININE 0.9 mg/dL (0.6-1.3); POTASSIUM 4.4 mmol/L (3.5-5.1)
--- NOTE | 2020-04-16 11:52 | NUR ---
Nutrition: rehab admit with hip fx. Wt up from acute. No intake records, nsg reported pt did well with breakfast; no concerns. Albumin 2.3. Meds reviewed. Assess at low nutriton risk at this time.
--- NOTE | 2020-04-16 18:19 | NUR ---
ASSESSMENT COMPLETED DOCUMENTED THIS MORNING. PATIENT HAS HAD NO PRN PAIN MEDS AND IS PARTICIPATING IN THERAPY WELL. INCESSANTLY TALKS, NEEDS REFOCUSING WITH ANY TASK. PATIENT IS AMBULATING FROM HER BED TO FOR TOILETING NEEDS AND HAS BEEN MORE CONTINENT OF BOWEL THE DAY PROGRESSED. LACTULOSE ORALLY HAS MADE BOWELS LOOSE AND FREQUENT. BGL 121/146/145. FAMILY HAS BEEN CONTINUALLY SENDING FOOD INTO PATIENT THROUGH THE ER TODAY...NURSING EDUCATED PATIENT ON WATCHING CARBS WITH DONUTS, COOKIES AND [place] BREADSTICKS SENT IN.
[2020-04-16 20:35] VITALS: BP 124/51
--- NOTE | 2020-04-17 05:58 | NUR ---
ASSUMED CARES AT 1920. ALERT AND ORIENTED. PLEASANT. O2 2L NC. WBAT RLE. HIP PRECAUTIONS. TRAMADOL GIVEN FOR FIBROMYALGIA AND BACK PAIN. PT NOTED SOME NAUSEA AFTERWARDS. NO VOMITING. REFUSED ANY MED. NAUSEA RESOLVED AFTER HAVING BM. MIN ASSIST WITH GAIT BELT AND WALKER. UP TO BR. HAS HAD SOME LOOSE INCONTINENT STOOLS. DRESSING TO RIGHT HIP SATURATED WITH SEROUS DRAINING ONTO CLOTHES AND SO WAS CHANGED. SLEPT LITTLE OFF AND ON. CALL LIGHT IN REACH AND BED ALARM ON.
[2020-04-17 08:24] VITALS: BP 123/58
--- NOTE | 2020-04-17 15:41 | NUR ---
WOUND NURSE: PATIENT SEEN IN ACUTE CARE ON 04/13 AND NOW IS ON REHAB UNIT: PATIENT WITH RIGHT INNER THIGH BULLA MEASURING 1.3 X 10.0 X 0.1 CM AND RIGHT CALF 1.0 X 11.0 X 0.1 CM. PATIENT BLAMING 2ND BULLA ON USE OF UGO HOSE ON AN EARLIER DATE. BASED ON MOISTURE LEVEL OF THIGH WOUND, CHANGED TO AQUACEL AG UNDER FOLDED 4X4'S UNDER TRANSPARENT DRAPE. THE SAME DRESSING WAS APPLIED TO THE CALF BLISTER. THERE IS MINIMAL PERIWOUND REDNESS, AND NO WARMTH, OR INDURATION NOTED. MODERATE AMOUNT OF SEROUS DRAINAGE WAS NOTED.
--- NOTE | 2020-04-17 16:35 | NUR ---
Pt lives at home with . Pt has cane, oxygen through [employer] but does not have a RW. Pt has dtrs and sister as contacts as well. SW to continue to follow on inpt rehab unit and assist with safe dc planning.
--- NOTE | 2020-04-17 17:38 | NUR ---
ALERT AND ORIENTED X4. UP WITH 1 ASSIST GAIT BELT AND WALKER. DENIED NEED FOR PAIN MEDICATION WHEN OFFERED. DRESSING DRY AND INTACT OVER RIGHT HIP. TOTAL HIP PRECAUTIONS FOLLOWED. DRESSING TO RIGHT INNER LEG AND RIGHT LOWER LEG CHANGED BY WOUND NURSE. REMAINS ON O2 AT 2L/NC TO KEEP O2 SATS IN 90"S. HAVING FREQUENT LOOSE STOOLS DUE TO MEDICATION. REMAINS WEIGHTBEARING TOLERATED TO RIGHT LOWER LEG. USES CALL LIGHT WHEN NEEDING ASSIST. FALL PRECAUTIONS IN PLACE. BED ALARM AND CHAIR ALARM USED. SKIN COLOR REMAINS SLIGHTLY JAUNDICE.
[2020-04-17 20:18] VITALS: BP 112/39
[2020-04-18 04:30] LABS: HEMATOCRIT 28.8 % (37.0-47.0); HEMOGLOBIN 10.1 gm/dL (12.0-15.0); MCH 35.7 pg (26.0-34.0); MCHC 35.2 g/dL (28.0-37.0); MCV 101.4 fL (80.0-100.0); MPV 7.4 fl. (7.2-11.1); RBC 2.84 mil/uL (4.20-5.00); RDW-CV 15.2 % (10.5-14.5); WBC 9.3 thou/uL (4.0-11.0)
[2020-04-18 04:42] LABS: ALBUMIN 2.4 g/dL (3.4-5.0); ALKALINE PHOSPHATASE 103 U/L (46-116); ANION GAP 6 mmol/L (7-16); BUN 29 mg/dL (7-18); CALCIUM 8.3 mg/dL (8.5-10.1); CHLORIDE 110 mmol/L (98-107); CO2 23 mmol/L (21-32); CREATININE 1.2 mg/dL (0.6-1.3); GLUCOSE 127 mg/dL (70-99); POTASSIUM 4.7 mmol/L (3.5-5.1); SGOT 42 U/L (15-37); SGPT 22 U/L (30-65); SODIUM 139 mmol/L (136-145); TOTAL BILIRUBIN 4.8 mg/dL (<0.1-1.0)
--- NOTE | 2020-04-18 04:42 | NUR ---
ASSUMED CARES AT 1920. ALERT AND ORIENTED PLEASANT. O2 2L NC. REFUSED ANY PAIN MED. MIN ASSIST WITH GAIT BELT AND WALKER. UP TO BR. HAD LOOSE STOOL INCONTINENCE X 4 OVERNIGHT. NEEDS ASSIST WITH CARES. DRESSINGS TO RIGHT HIP AND LEG ARE INTACT. DID NOT SLEEP WELL DUE TO NEEDING TO GET UP TO BATHROOM ALL NIGHT. CALL LIGHT IN REACH AND BED ALARM ON.
[2020-04-18 05:04] LABS: AMMONIA < 10 umol/L (11-32)
[2020-04-18 09:03] VITALS: BP 106/39
--- NOTE | 2020-04-18 18:48 | NUR ---
AM ASSESSMENT AND VITAL SIGNS COMPLETED DOCUMENTED. PT WORKED WITH PT, OT AND ST TODAY, C/O FATIGUE AND INCREASED PAIN TO RIGHT LEG. I SPOKE WITH PT'S . FALL PRECAUTIONS AND HOURLY ROUNDING CONTINUE.
[2020-04-18 20:27] VITALS: BP 131/53
--- NOTE | 2020-04-19 04:42 | NUR ---
ASSUMED PT CARE AT 1930. PT ALERT AND ORIENTED X4, POLITE AND COOPERATIVE WITH CARES. C/O PAIN, PAIN MEDICATION GIVEN PER JAN. UP WITH MIN ASSIST, GAIT BELT AND WALKER TO BATHROOM TO VOID. STOOL X1. PERICARE PROVIDED. DRESSING TO RIGHT HIP AND LEG INTACT. SLEPT WELL OVERNIGHT. USES CALL LIGHT APPROPRIATELY. CALL LIGHT AND FREQUENTLY USED ITEMS IN REACH. BED ALARM ON FOR SAFETY. HOURLY ROUNDING IN PROGRESS, WILL CONTINUE TO MONITOR.
[2020-04-19 07:44] VITALS: BP 125/55
--- NOTE | 2020-04-19 15:37 | NUR ---
AM ASSESSMENT AND VITAL SIGNS COMPLETED DOCUMENTED. PT HAS BEEN AMBULATED TO AND FROM THE BATHROOM MULTIPLE TIMES TODAY. PT IS INCONTINENT OF STOOL AT TIMES, ABLE TO CLEAN HERSELF UP AND CHANGE HER BRIEF. NEW ORDER REC'D FOR PRN NAPROXEN. CRESSING TO RIGHT HIP C/D/I. PT HAS TALKED TO HER TODAY AND STATES HE DOESN'T NEED TO BE CALLED BY NURSING. FALL PRECAUTIONS AND HOURLY ROUNDING CONTINUE.
[2020-04-19 19:30] VITALS: BP 105/42
--- NOTE | 2020-04-20 05:05 | NUR ---
ASSUMED PT CARE AT 1930. PT ALERT AND ORIENTED X4, POLITE AND COOPERATIVE WITH CARES. DENIED PAIN UPON ASSESSMENT. UP WITH MIN ASSIST, GAIT BELT AND WALKER TO BATHROOM TO VOID. DRESSING TO RIGHT HIP AND LEG INTACT. USES CALL LIGHT APPROPRIATELY. CALL LIGHT AND FREQUENTLY USED ITEMS IN REACH. BED ALARM ON FOR SAFETY. HOURLY RUONDING IN PROGRESS, WILL CONTINUE TO MONITOR.
[2020-04-20 06:22] VITALS: BP 103/41
[2020-04-20 07:54] VITALS: BP 103/41
[2020-04-20 08:06] LABS: HEMATOCRIT 27.5 % (37.0-47.0); HEMOGLOBIN 9.6 gm/dL (12.0-15.0); MCH 35.7 pg (26.0-34.0); MCHC 34.8 g/dL (28.0-37.0); MCV 102.3 fL (80.0-100.0); MPV 7.4 fl. (7.2-11.1); RBC 2.69 mil/uL (4.20-5.00); RDW-CV 16.2 % (10.5-14.5); WBC 6.1 thou/uL (4.0-11.0)
[2020-04-20 08:13] LABS: CALCIUM 8.3 mg/dL (8.5-10.1); CREATININE 1.3 mg/dL (0.6-1.3); MAGNESIUM 1.7 mg/dL (1.8-2.4); POTASSIUM 4.8 mmol/L (3.5-5.1)
--- NOTE | 2020-04-20 18:46 | NUR ---
ALERT AND ORIENTED X4. UP WITH 1 ASSIT, GAIT BELT AND WALKER. DRESSINGS CHANGED TO WOUNDS ON RIGHT UPPER AND LOWER LEG. RIGHT HIP DRESSING REMAINS DRY AND INTACT. HAS SEVERAL LOOSE STOOLS TODAY. PO PAIN MEDICATION HELPFUL WITH PAIN. FALL PRECAUTIONS IN PLACE. BED ALARM AND CHAIR ALARM USED. USES CALL LIGHT WHEN NEEDING ASSIST.
[2020-04-20 20:00] VITALS: BP 124/43
--- NOTE | 2020-04-21 05:03 | NUR ---
ASSUMED PT CARE AT 1930. PT ALERT AND ORIENTED X4, POLITE AND COOPERATIVE WITH CARES. PT UP WITH SBA, GAIT BELT AND WALKER TO BATHROOM TO VOID. STOOL X3 THIS SHIFT. DRESSING TO RIGHT HIP C/D/I. DRESSING TO RIGHT THIGH INTACT. DRESSING TO BACK OF RIGHT KNEE INTACT. ON 2L 02 PER NC. PRN PAIN MEDICATION ONCE THIS SHIFT. PT SLEPT WELL BUT UP EARLY TO SIT IN RECLINER AND WORK ON ART PROJECTS. CALL LIGHT IN REACH. CHAIR ALARM ON FOR SAFETY. HOURLY ROUNDING IN PROGRESS, WILL CONTINUE TO MONITOR.
[2020-04-21 07:19] LABS: ABSOLUTE EOSINOPHILS 0.2 thou/uL (0.0-0.7); ABSOLUTE LYMPHOCYTES 0.7 thou/uL (0.8-5.3); ABSOLUTE MONOCYTES 0.6 thou/uL (0.0-1.2); ABSOLUTE NEUTROPHILS 4.5 thou/uL (1.6-8.1); BASOPHILS 0.8 %; EOSINOPHILS 3.1 %; HEMOGLOBIN 9.7 gm/dL (12.0-15.0); LYMPHOCYTES 11.7 %; MCH 35.4 pg (26.0-34.0); MCHC 34.6 g/dL (28.0-37.0); MCV 102.3 fL (80.0-100.0); MONOCYTES 10.6 %; MPV 7.7 fl. (7.2-11.1); NUCLEATED RBCS 0 /100WBC; PLATELET COUNT* 99 thou/uL (150-400); POLYS 73.8 %; RBC 2.73 mil/uL (4.20-5.00)
[2020-04-21 07:38] LABS: ALBUMIN 2.6 g/dL (3.4-5.0); CALCIUM 8.1 mg/dL (8.5-10.1); CREATININE 1.6 mg/dL (0.6-1.3); MAGNESIUM 1.6 mg/dL (1.8-2.4); POTASSIUM 4.9 mmol/L (3.5-5.1); TOTAL BILIRUBIN 3.8 mg/dL (<0.1-1.0); TOTAL PROTEIN 5.1 g/dL (6.4-8.2)
[2020-04-21 07:50] VITALS: BP 110/41
--- NOTE | 2020-04-21 16:22 | NUR ---
PATIENT UP TO RECLINER THIS SHIFT, THERAPIES COMPLETED. PRN NAPROXEN GIVEN X 1 THIS SHIFT WITH AM MEDS. PATIENT REFUSED LACTULOSE THIS AM, PATIENT STATED SHE HAS BEEN NAUSEATED AND BELIEVES THE LACTULOSE IS CAUSING IT. 2 LOOSE BM'S NOTED THIS SHIFT. SPOKE WITH RUPAL SANTACRUZ REGARDING MEDICATION AND ORDERED PRN ZOFRAN AND AN AMMONIA LEVEL FOR AM. DRESSING TO RIGHT INNER THIGH AND RIGHT CALF CHANGED PER PROTOCOL, DRESSING TO RIGHT HIP D/I. 02 2L NC REMAINS IN PLACE. UP WITH SBA WALKER AND GAIT BELT. HERE THIS EVENING. ACCUCHECKS WITHIN NORMAL LIMITS.
[2020-04-21 20:00] VITALS: BP 104/41
--- NOTE | 2020-04-22 04:39 | NUR ---
ASSUMED CARE AT 1920. ALERT AND ORIENTED. PLEASANT. O2 2L NC. ZOFRAN GIVEN FOR NAUSEA BUT NO EMESIS. DENIED ANY NEED FOR PAIN MEDS. DRSG TO RIGHT HIP INTACT. MIN ASSIST WITH GAIT BELT AND WALKER. UP TO BR. HAD LOOSE STOOL X 1. DRESSINGS TO RIGHT THIGH AND CALF ARE INTACT. SLEPT OFF AND ON. CALL LIGHT IN REACH AND BED ALARM ON.
[2020-04-22 08:00] VITALS: BP 118/55
[2020-04-22 08:47] LABS: ABSOLUTE EOSINOPHILS 0.2 thou/uL (0.0-0.7); ABSOLUTE LYMPHOCYTES 0.7 thou/uL (0.8-5.3); ABSOLUTE MONOCYTES 0.6 thou/uL (0.0-1.2); ABSOLUTE NEUTROPHILS 4.6 thou/uL (1.6-8.1); BASOPHILS 0.6 %; EOSINOPHILS 2.9 %; HEMATOCRIT 29.8 % (37.0-47.0); HEMOGLOBIN 10.3 gm/dL (12.0-15.0); LYMPHOCYTES 11.4 %; MCH 35.2 pg (26.0-34.0); MCHC 34.7 g/dL (28.0-37.0); MCV 101.4 fL (80.0-100.0); MONOCYTES 9.7 %; MPV 7.2 fl. (7.2-11.1); NUCLEATED RBCS 0 /100WBC; PLATELET COUNT* 127 thou/uL (150-400); POLYS 75.4 %; RBC 2.94 mil/uL (4.20-5.00); RDW-CV 16.5 % (10.5-14.5); WBC 6.1 thou/uL (4.0-11.0)
[2020-04-22 09:25] LABS: ALBUMIN 2.7 g/dL (3.4-5.0); CALCIUM 8.3 mg/dL (8.5-10.1); CREATININE 1.7 mg/dL (0.6-1.3); POTASSIUM 4.9 mmol/L (3.5-5.1); TOTAL BILIRUBIN 4.5 mg/dL (<0.1-1.0); TOTAL PROTEIN 5.3 g/dL (6.4-8.2)
--- NOTE | 2020-04-22 17:11 | NUR ---
RASHMI and Dr Crockett met with pt to review team conference summary and plan for pt to remain on rehab to reteam. Pt wants to be able to dc by Sunday 04/29. Dr Crockett told pt that team will review. SW to continue to follow to assist with safe dc planning.
[2020-04-22 20:05] VITALS: BP 106/41
--- NOTE | 2020-04-22 20:05 | NUR ---
SITTING UP IN RECLINER DOING BEAD WORK. DENIES PAIN. SNACK PROVIDED. 02 NC AT TWO LITERS. CALL LIGHT WITHIN REACH.
[2020-04-23 07:15] VITALS: BP 112/55
--- NOTE | 2020-04-23 14:47 | NUR ---
WOUND NURSE: PATIENT SEEN TO READDRESS RIGHT THIGH BULLA, NOW MEASURING 0.6 X 7.5 X 0.1 CM. PRESENTS WITH RED AND LIGHT YELLOW NONGRANULATING TISSUE IN THE WOUND BED, SMALL TO MOD AMOUNT OF SEROUS DRAINAGE ON THE OLD DRESSING. RIGHT CALF BULLA MEASURES 0.5 X 2.0 X 0.1 CM. ALSO CONTAINS RED, MINIMAL YELLOW NONGRANULATING TISSUE IN THE WOUND BED. DRAINING MINIMAL AMOUNT OF SEROUS DRAINAGE. BASED ON DECREASED DRAINAGE COMPARED TO LAST WEEK, WILL DECREASE THE FREQUENCY OF REQUIRED DRESSING CHANGES. PATIENT REINSTRUCTED ON NUTRIENT DENSE DIET TO PROMOTE HEALING. PATIENT IS RECEPTIVE TO COMING TO [facility] OUTPATIENT ONCE DISCHARGED. PROVIDED HER WITH [facility] CONTACT INFORMATION IN WRITING.
--- NOTE | 2020-04-23 18:20 | NUR ---
INDRA PYLE NOTIFIED ME THAT SHE IS ALLOWING THE PT'S SISTER TO BE HER DESIGNATED VISITOR MONDAY THROUGH MONDAY BECAUSE HER IS GOING OUT OF TOWN. ON MONDAY HER WILL RESUME THAT ROLE.
[2020-04-23 19:20] VITALS: BP 119/44
--- NOTE | 2020-04-23 19:20 | NUR ---
SITTING UP IN RECLINER. STATES TIRED AND READY TO GO TO BED. ALSO COMPLAINING OF GENERALIZED DISCOMFORT. NAPROXEN GIVEN. TRANSFERRED TO BED WITH CGA, CHRISSY TOLLIVER. 02 NASAL CANNULA AT 2 LITERS. SNACK PROVIDED. CALL LIGHT WITHIN REACH.
--- NOTE | 2020-04-24 04:43 | NUR ---
UP X ONE TO BEDSIDE COMMODE DURING THE NIGHT AND HAD A LARGE SOFT UNFORMED BM. NO FURTHER COMPLAINT OF PAIN. HOURLY ROUNDING IN PROGRESS.
[2020-04-24 06:09] LABS: ABSOLUTE EOSINOPHILS 0.2 thou/uL (0.0-0.7); ABSOLUTE LYMPHOCYTES 1.1 thou/uL (0.8-5.3); ABSOLUTE MONOCYTES 0.7 thou/uL (0.0-1.2); ABSOLUTE NEUTROPHILS 3.4 thou/uL (1.6-8.1); BASOPHILS 0.7 %; EOSINOPHILS 3.5 %; HEMATOCRIT 27.1 % (37.0-47.0); HEMOGLOBIN 9.5 gm/dL (12.0-15.0); LYMPHOCYTES 20.3 %; MCH 35.8 pg (26.0-34.0); MCHC 35.1 g/dL (28.0-37.0); MCV 102.2 fL (80.0-100.0); MONOCYTES 12.9 %; MPV 7.8 fl. (7.2-11.1); NUCLEATED RBCS 0 /100WBC; PLATELET COUNT* 103 thou/uL (150-400); POLYS 62.6 %; RBC 2.66 mil/uL (4.20-5.00); RDW-CV 16.8 % (10.5-14.5); WBC 5.4 thou/uL (4.0-11.0)
[2020-04-24 06:31] LABS: CALCIUM 8.2 mg/dL (8.5-10.1); CREATININE 1.6 mg/dL (0.6-1.3); POTASSIUM 5.1 mmol/L (3.5-5.1)
[2020-04-24 07:30] VITALS: BP 103/45
[2020-04-24 17:00] LABS: CLARITY CLOUDY; SOURCE ASCITES; TOTAL VOLUME 3200 ml
--- NOTE | 2020-04-24 17:00 | NUR ---
ALERT AND ORIENTED X4. MORE DROWSY AND WEAK TODAY. PO PAIN MEDICATION HELPFUL WITH HEADACHE PAIN. C/O NAUSEA AND NAUSEA MEDICATION GIVEN WITH SOME RELIEF. ULTASOUND PARENCENTESIS DONE TODAY WITH REMOVAL OF 3200ML OF FLUID. PATIENT RESTING QUIETLY IN ROOM AT THIS TIME. REMAINS ON TOTAL HIP PRECAUTIONS. DRESSING ON RIGHT HIP, RIGHT UPPER LEG AND RIGHT LOWER LEG DRY AND INTACT. SKIN JAUNDICE IN COLOR. FALL PRECAUTIONS IN PLACE. BED ALARM AND CHAIR ALARM IN PLACE. USES CALL LIGHT WITHIN REACH. CONTINENT OF BOWEL AND BLADDER TODAY.
[2020-04-24 17:13] LABS: BF RBC <1000 /mm3; TOTAL CELL COUNT 95 /mm3
[2020-04-24 18:00] LABS: BF LYMPHOCYTES 47 %; BF MONOCYTES 45 %; BF POLYS 8 %
[2020-04-24 18:24] LABS: BF WBC 95 /mm3
[2020-04-24 20:13] VITALS: BP 131/54
--- NOTE | 2020-04-25 01:15 | NUR ---
ASSUMED CARE AT 1930. PATIENT RESTING IN BED. SLEEPY AT BEGINNING OF SHIFT, WOKE UP MORE SHIFT PROGRESSED. UP WITH GAIT BELT, WALKER, VERY SLOW. VOIDS PER TOILET, BUT WAS ALSO INCONTINENT. DRESSING TO PERICENTESIS C/D/I. DRESSING TO RT UPPER THIGH AND RT CALF C/D/I. O2 2L/NC. LESS EDEMA IN BLE NOTED. MADE NPO AFTER MN FOR ABD U/S IN AM. NO C/O PAIN. TAKES PILLS WHOLE WITH WATER. HOURLY ROUNDS CONTINUE. BED ALARM ON. CALL LITE IN REACH.
--- NOTE | 2020-04-25 05:57 | NUR ---
SLEPT MOST OF THE NIGHT. DRESSING TO ABD C/D/I. TURNS SELF. UP TO VOID PER TOILET. NO C/O PAIN. HOURLY ROUNDS CONTINUE. BED ALARM ON. CALL LITE IN REACH.
[2020-04-25 08:17] VITALS: BP 117/39
--- NOTE | 2020-04-25 18:29 | NUR ---
ASSUMMED CARE OF PT AT 0730, PT ALERT AND ORIENTED, FORGETFUL, TRANSFERS WITH MIN ASSIST, GB WALKER, GAIT SLOW, INCONTINENT OF BOWEL AND BLADDER, TAKES FOOD AND FLUIDS WITH ENCOURAGEMENT, SHAMEKA REMOVED FROM RIGHT HIP, INCISION LINE RED, OLD DRAINAGE ON INCISION LINE, SOME SEROUS SANGUINOUS DRAINAGE FROM TOP OF INCISION, DRESSING APPLIED, DRESSING CHANGED AND PICTURES TAKEN OF OTHER 2 WOUNDS ON RIGHT LEG, UP IN CHAIR FOR MEALS, HERE MUCH OF SHIFT AND SPOKE WITH PHYSICIAN, ASSESSMENT COMPLETE, HOURLY ROUNDING COMPLETE, WILL CONTINUE TO MONITOR.
[2020-04-25 20:00] VITALS: BP 102/37
--- NOTE | 2020-04-25 23:00 | NUR ---
ASSUMED CARE AT 1930. PATIENT RESTING IN BED. UP WITH ONE, GAIT BELT, WALKER. VOIDS PER TOILET. DRESSINGS TO RIGHT HIP, RIGHT THIGH AND RT CALF C/D/I. INCONTINENT INTO BRIEF. HAD SMALL BM AROUND 2100. O2 2L/NC. TURNS SELF. SKIN JAUNDICED. DENIES PAIN, EVEN TO HIP. CUEING NEEDED AT TIMES WHEN FIRST RISING. HOURLY ROUNDS CONTINUE. BED ALARM ON. CALL LITE IN REACH.
--- NOTE | 2020-04-26 05:48 | NUR ---
SLEPT MOST OF THE NIGHT. DID USE CALL LITE APPROPRIATELY TO GO TO TOILET. UP WITH ONE, GAIT BELT, WALKER. DENIED PAIN. TURNS SELF. PILLOW BETWEEN LEGS. ABLE TO GET BOTH LEGS INTO BED. HOURLY ROUNDS CONTINUE. BED ALARM ON. CALL LITE IN REACH.
[2020-04-26 08:04] VITALS: BP 117/49
--- NOTE | 2020-04-26 16:24 | NUR ---
ASSUMMED CARE OF PT AT 0730, PT ALERT AND ORIENTED, TRANSFERS WITH ASSIST OF 1, GB WALKER, SLOW GAIT, AMB TO BATHROOM, DENIES PAIN, UP IN CHAIR MUCH OF SHIFT, BATHED AT SINK, ASSISTED WITH DRESSING, TAKING FOOD AND FLUIDS WELL, DRESSINGS INTACT TO RIGHT LEG, ASSESSMENT COMPLETE, HOURLY ROUNDING COMPLETE, WILL CONTINUE TO MONITOR.
[2020-04-26 19:15] VITALS: BP 109/41
--- NOTE | 2020-04-26 23:24 | NUR ---
ASSUMED CARE AT 1930. PATIENT RESTING IN BED. TURNS SELF, ABLE TO GET LEGS IN AND OUT OF BED. DRESSING TO RT HIP C/D/I. DSSGS TO RT THIGH AND RT CALF C/D/I. SKIN CONTINUES TO BE JAUNDICE. PATIENT COMPLAINS ABOUT HAVING BMS DUE TO LACTULOSE, BUT VERBALIZES UNDERSTANDING ALSO THAT SHE NEEDS TO HAVE 3 BMS A DAY TO CLEAR AMMONIA LEVELS DUE TO LIVER DISEASE. ABD ROUND. DENIES PAIN. TAKES PILLS A FEW AT A TIME WITH WATER. HOURLY ROUNDS CONTINUE. BED ALARM ON. CALL LITE IN REACH AND SHE USES IT APPROPRIATELY.
--- NOTE | 2020-04-27 05:16 | NUR ---
SLEPT MOST OF THE NIGHT. UP TO VOID. INCONTINENT OF URINE IN PULLUPS IN ADDITION TO VOIDING PER TOILET. TURNS SELF. DRESSINGS C/D/I. HOURLY ROUNDS CONTINUE. BED ALARM ON. CALL LITE IN REACH. NO C/O PAIN.
[2020-04-27 06:29] LABS: ABSOLUTE EOSINOPHILS 0.2 thou/uL (0.0-0.7); ABSOLUTE MONOCYTES 0.6 thou/uL (0.0-1.2); ABSOLUTE NEUTROPHILS 3.6 thou/uL (1.6-8.1); BASOPHILS 0.5 %; HEMATOCRIT 29.3 % (37.0-47.0); HEMOGLOBIN 10.3 gm/dL (12.0-15.0); LYMPHOCYTES 17.5 %; MCH 35.5 pg (26.0-34.0); MCHC 35.1 g/dL (28.0-37.0); MCV 101.3 fL (80.0-100.0); MONOCYTES 11.3 %; MPV 7.3 fl. (7.2-11.1); NUCLEATED RBCS 0 /100WBC; PLATELET COUNT* 104 thou/uL (150-400); POLYS 66.7 %; RBC 2.89 mil/uL (4.20-5.00); RDW-CV 16.5 % (10.5-14.5); WBC 5.5 thou/uL (4.0-11.0)
[2020-04-27 06:43] LABS: ALBUMIN 2.4 g/dL (3.4-5.0); CALCIUM 8.7 mg/dL (8.5-10.1); CREATININE 1.4 mg/dL (0.6-1.3); POTASSIUM 4.4 mmol/L (3.5-5.1); TOTAL BILIRUBIN 3.8 mg/dL (<0.1-1.0)
[2020-04-27 08:19] VITALS: BP 106/46
[2020-04-27 09:00] VITALS: BP 106/46
[2020-04-27 16:58] VITALS: BP 109/51
--- NOTE | 2020-04-27 17:37 | NUR ---
ALERT AND ORIENTED X4. UP WITH 1 ASSIST, GAIT BELT AND WALKER. PO PAIN MEDICATION GIVEN AND HELPFUL WITH RIGHT HIP PAIN. DRESSINGS REMAIN INTACT OVER RIGHT HIP, RIGHT INNER THIGH AND RIGHT CALF AREA. O2 REMAINS ON AT 3L/NC TO KEEP O2 SAT IN 90"S. USES CALL LIGHT WHEN NEEDING ASSIST. FALL PRECAUTIONS IN PLACE. BED ALARM AND CHAIR ALARM USED.
[2020-04-27 19:15] VITALS: BP 116/43
--- NOTE | 2020-04-28 05:30 | NUR ---
ASSUMED CARES AT 1920. ALERT AND ORIENTED. PLEASANT. O2 3L NC. DENIED ANY NEED FOR PAIN MEDS. DRSG TO RIGHT THIGH AND CALF CHANGED. RIGHT HIP DRSG INTACT. MIN ASSIST WITH GAIT BELT AND WALKER. PT HAVING INCREASED URINARY INCONTINENCE IN BED REQUIRING NURSING TO ASSIST WITH CARES. URINE SPECIMEN OBTAINED. NO STOOLS OVERNIGHT. SLEPT WELL OTHERWISE. CALL LIGHT IN REACH AND BED ALARM ON.
[2020-04-28 05:50] LABS: URINE BILIRUBIN NEGATIVE (Negative); URINE BLOOD NEGATIVE (Negative); URINE CLARITY CLEAR; URINE COLOR YELLOW; URINE GLUCOSE-RANDOM NEGATIVE (Negative); URINE KETONES NEGATIVE (Negative); URINE LEUKOCYTES-REFLEX TRACE (Negative); URINE NITRITE-REFLEX NEGATIVE (Negative); URINE PROTEIN NEGATIVE (Negative); URINE SPECIFIC GRAVITY 1.025 (1.005-1.030); URINE UROBILINOGEN 0.2 E.U./dl (0.2-1.0)
[2020-04-28 06:19] LABS: BACTERIA-REFLEX >30 Many /HPF (None Seen); CRYSTALS None Seen /LPF (None Seen); HYALINE CASTS 4-10 Moderate /LPF (None Seen); MUCUS 0-3 Light strn/LPF (None Seen); SQUAMOUS 0-3 Few /LPF (0-3); URINE RBC 0-2 Rare /HPF (0-2); URINE WBC-REFLEX 6-15 Few /HPF (0-5)
[2020-04-28 08:00] VITALS: BP 113/50
--- NOTE | 2020-04-28 17:07 | PATH ---
[address] [address] PATHOLOGY RPT PROCEDURE Name: TIFFANIE MARIN Room: [address] IN [facility]#: [id number] Admission: 04/15/20 Date of : 46 Discharge: Report #: [id number] Path Case #: [id number] Note [facility] Accession Number: [id number] TESTS RESULT FLAG UNITS REF RANGE LAB Clinician Provided Cytology Information No. of containers..01 Other (Miscellaneous) Source: ASCITES DIAGNOSIS: 02 ASCITES NEGATIVE FOR MALIGNANT CELLS. REACTIVE CELLULAR CHANGES NOTED. THIS INTERPRETATION INCLUDES EVALUATION OF A CELL BLOCK. Signed out by: 02 Jovani Herrmann MD, Pathologist NPI- [id number] Performed by: 01 Sandy Hoffman, Speeder Operator ([facility]) Gross description: 01 40ML, CLEAR YELLOW, 1TP 1CB /LCS 04/27/2020 0539 Local FLAG LEGEND: L-Low Normal,H-High Normal,LL-Alert Low,HH-Alert High <-Panic Low,>-Panic High,A-Abnormal,AA-Critical Abnormal Performed at: [address] [place] [address] Simon Pedroza MD, [address] [place] [id number] Jacobo Reed MD, Specimen Comment: A courtesy copy of this report has been sent to [phone], [phone] Specimen Comment: [id number] Specimen Comment: Report sent to DR GRACE / DR WATTS Specimen Comment: A duplicate report has been generated due to demographic updates. Performed at: [address], [place], [place] [id number] MD Simon Pedroza MD Phone: [phone]
--- NOTE | 2020-04-28 18:39 | NUR ---
RECEIVED REPORT FROM NOC JOSE RAMON. PATIENT VSS. LUNG SOUNDS DIMINISHED ALL LOBES. NEW ORDER FOR LACTULOSE QID PRN FOR 2-3 BOWEL MOVEMENTS. PATIENT GIVEN LACTULOSE WITH ALL MEALS, AND IS HAVING UNCONTROLLABLE DIARRHEA. PATIENT CLEANED UP AND BACK TO BED. PATIENT DID NOT EAT SUPPER. SISTER WANTED TO SPEAK WITH DR, BUT DID NOT SEE DR ON THE FLOOR. PATIENT ON 3L O2NC. PATIENT IN BED. BED IN LOWEST LOCKED POSITION. CALL LIGHT IN REACH.
[2020-04-28 19:54] VITALS: BP 144/51
--- NOTE | 2020-04-29 05:20 | NUR ---
ASSUMED PT CARE AT 1930. PT ALERT AND ORIENTED X4, POLITE AND COOPERATIVE WITH CARES. PT GIVEN LACTULOSE AT END OF DAY SHIFT, STOOL X5 THIS SHIFT. PT UP WITH SBA, GAIT BELT AND WALKER. ON 3L 02 PER NC. DRESSING TO RIGHT HIP C/D/I. DRESSINGS TO RIGHT THIGH AND HIP INTACT. USES CALL LIGHT APPROPRIATELY. CALL LIGHT IN REACH. BED ALARM ON FOR SAFETY. HOURLY ROUNDING IN PROGRESS, WILL CONTINUE TO MONITOR.
[2020-04-29 08:56] VITALS: BP 126/48
--- NOTE | 2020-04-29 16:17 | NUR ---
RASHMI and Dr Crocektt met with pt and pt to review team conference summary and plan for pt to be ready to dc on Monday. Team recommmending and offered family training to which pt said he would be here for therapies on . RASHMI called [employer] and pt oxygen through [facility]. RASHMI confirmed pt need for smaller and portable bag oxygen to which company said pt does have the small bottle and that she can hang on walker or in a backpack and that they will deliver another one to pt hospital room by noon on Monday. RASHMI to discuss and to arrange pt choice of HH.
--- NOTE | 2020-04-29 17:10 | NUR ---
AM ASSESSMENT AND VITAL SIGNS COMPLETED DOCUMENTED. PT CONTINUES TO WORK WITH PT, OT AND ST. PT'S WILL HAVE FAMILT TRAINING TOMMORROW AND PT WILL BE DISCHARGE HOME ON MONDAY. DRESSINGS ARE ALL C/D/I. PT USES THE CALL LIGHT FOR ASSISTANCE. FALL PRECAUTIONS AND HOURLY ROUNDING CONTINUE.
[2020-04-29 19:00] VITALS: BP 130/46
--- NOTE | 2020-04-30 04:52 | NUR ---
ASSUMED PT CARE AT 1930. PT ALERT AND ORIENTED X4, POLITE AND COOPERATIVE WITH CARES. DENIES PAIN. PT ALREADY IN BED AT SHIFT CHANGE. UP TO VOID WITH SBA, GAIT BELT AND WALKER X2 THIS SHIFT. NO STOOL THIS SHIFT. PT IS ELATED THAT SHE IS GOING HOME MONDAY. 2L 02 PER NC. SLEPT WELL OVERNIGHT. USES CALL LIGHT APPROPRIATELY. CALL LIGHT IN REACH, BED ALARM ON FOR SAFETY. HOURLY ROUNDING IN PROGRESS, WILL CONTINUE TO MONITOR.
[2020-04-30 08:00] VITALS: BP 130/46
--- NOTE | 2020-04-30 17:21 | NUR ---
AM ASSESSMENT AND VITAL SIGNS COMPLETED DOCUMENTED. FAMILY TRAINING COMPLETED TODAY. RIGHT HIP IS CREDIT REVIEW OFFICER AND WELL HEALED. PT DENIES PAIN. FALL PRECAUTIONS AND HOURLY ROUNDING CONTINUE.
[2020-04-30 20:23] VITALS: BP 101/45
--- NOTE | 2020-05-01 05:28 | NUR ---
ASSUMED CARES AT 1920. ALERT AND ORIENTED. PLEASANT. DENIED ANY PAIN. O2 2L NC. MIN ASSIST WITH GAIT BELT AND WALKER. UP TO BATHROOM. DID HAVE LARGE SOFT BM. RIGHT HIP INCISION HEALING AND MEDICATION CARE MANAGER. DRESSING TO RIGHT THIGH AND CALF HAD NOT BEEN CHANGED FOR 2 DAYS. DRESSING CHANGED AND PICS TAKEN. PT SLEPT WELL OTHERWISE. CALL LIGHT IN REACH AND BED ALARM ON.
[2020-05-01 08:19] VITALS: BP 111/46
[2020-05-01] MEDS ORDERED: OXYCODONE HCL 55 MG PO (11:05)
[2020-05-01] MEDS ORDERED: COZAAR 25 MG TA25 M2 PO (11:33)
[2020-05-01] MEDS ORDERED: MAGNESIUM250 M1 PO (11:35)
[2020-05-01] MEDS ORDERED: MELATONIN10 M3 PO (11:36)
[2020-05-01] MEDS ORDERED: NAPRELAN375 MG PO (11:38)
[2020-05-01] MEDS ORDERED: ZOFRAN ODT4 MG DISSOLVE (11:39)
[2020-05-01 11:53] VITALS: BP 111/46
[2020-05-01 12:13] VITALS: BP 111/46
--- NOTE | 2020-05-01 13:34 | NUR ---
PATIENT VERBALIZED UNDERSTANDING OF DISCHARGE INSTRUCTIONS. DENIES PAIN. UP WITH STAND BY ASSIST, GAIT BELT WALKER. REMAINS ON O2 AT 2L/NC WITH O2 SATS REMAINING IN 90'S. PATIENT HAS HAD 2 SOFT BOWEL MOVEMENTS TODAY. SKIN REMAINS JAUNDICE IN COLOR. DRESSINGS DRY AND INTACT OVER RIGHT INNER THIGH WOUND AND RIGHT CALF WOUND. RIGHT HIP INCISION HEALED. PATIENT VERBALIZED UNDERSTANDING OF TOTAL HIP PRECAUTIONS. DISCHARGED VIA W/C TO FAMILY CAR.
--- NOTE | 2020-05-01 13:37 | NUR ---
Pt to dc home with today. SW spoke with pt and pt about HH preference and they chose [facility]. SW faxed referral and orders to [facility]. SW provided information about [facility] at pt request. Pt has portable oxygen and cane. pt providing pt ride home.
== END 2020-05-01 13:00 | disposition home health service (06) | DRG 536 ==
LOC: M.REH 15:35
PROVIDERS: Internal Medicine; Nurse Practitioner; ADMIT Physical Medicine & Rehabilitation; ATTEND Physical Medicine & Rehabilitation
PROC: 0W9G3ZZ Drainage of Peritoneal Cavity, Percutaneous Approach (ICD-10-PCS; principal; 2020-04-24)
DX: S72.001A Fracture of unspecified part of neck of right femur, initial encounter for closed fracture (principal); R18.8 Other ascites; K74.60 Unspecified cirrhosis of liver; I10 Essential (primary) hypertension; E78.5 Hyperlipidemia, unspecified; I25.10 Atherosclerotic heart disease of native coronary artery without angina pectoris; F32.9 Major depressive disorder, single episode, unspecified; M79.7 Fibromyalgia; E11.65 Type 2 diabetes mellitus with hyperglycemia; W18.30XA Fall on same level, unspecified, initial encounter; K72.90 Hepatic failure, unspecified without coma; D69.6 Thrombocytopenia, unspecified; E83.42 Hypomagnesemia; Z79.899 Other long term (current) drug therapy; I25.2 Old myocardial infarction; Z88.8 Allergy status to other drugs, medicaments and biological substances